=== PATIENT | female | born 1950 | race Caucasian/White ===

== ENCOUNTER 2018-02-15 19:38 | Emergency (ER) | payer OTHER ==
[~2018-02-15 19:38] MED LIST: ATENOLOL50 M1 PO; BUPROPION HCL150 M4 PO; LINZESS145 MC1 PO; PYRIDIUM200 MG PO; RISPERIDONE2 M1 PO; SERTRALINE HCL100 MG PO; TRAZODONE HCL50 M1 PO; TRILIPIX135 M1 PO
--- NOTE | 2018-02-15 20:29 | RADIOLOGY REPORT ---
EXAMINATION: XR SHOULDER, RIGHT CLINICAL INFORMATION: Fall with shoulder ecchymosis COMPARISON: None TECHNIQUE: AP external rotation, Grashey, scapular Y, and axillary views of the right shoulder. FINDINGS: The bones and soft tissues are normal. No fracture. Glenohumeral and acromioclavicular alignment is anatomic with normal joint space. No abnormal soft tissue calcifications. IMPRESSION: Normal right shoulder.
[2018-02-15 20:45] LABS: ABSOLUTE BASOPHIL COUNT 0 /CUMM (0.0-0.2); ABSOLUTE EOSINOPHIL COUNT 0.1 /CUMM (0.0-0.7); ABSOLUTE GRANULOCYTE CT 6.2 /CUMM (1.4-6.5); ABSOLUTE MONOCYTE COUNT 0.8 /CUMM (0.10-0.60); BASOPHIL % 0.2 % (0.0-2.0); EOSINOPHIL % 1.2 % (0-5); GRANULOCYTE % 60.7 % (42.2-75.2); HEMATOCRIT 38.7 % (37-47); MEAN CORPUSCULAR HGB 30.7 PG (27.0-31.0); MEAN CORPUSCULAR HGB CONC 33.8 G/DL (33.0-37.0); MEAN CORPUSCULAR VOLUME 90.8 FL (81.0-99.0); MEAN PLATELET VOLUME 7.6 FL (7.4-10.4); PLATELET COUNT 267 /CUMM (130-400); RBC DISTRIBUTION WIDTH 13.8 % (11.5-14.5); RED BLOOD CELL CT 4.26 /CUMM (4.20-5.40); WHITE BLOOD CELL COUNT 10.1 /CUMM (4.8-10.8)
--- NOTE | 2018-02-15 20:53 | CT SCAN REPORT ---
EXAMINATION: CT BRAIN, CT CERVICAL SPINE AND CT MAXILLOFACIAL BONES. CLINICAL INFORMATION: Status post fall with right facial ecchymosis. COMPARISON: CT brain 01/30/2016. TECHNIQUE: 5 mm thin axial and 2.5 mm thin coronal images of brain were obtained. Axial 2.5 mm thin and reformatted 2 mm thin sagittal and coronal images of cervical spine were obtained. Subsequently 2.5 mm thin and reformatted 1.2 mm thin sagittal and coronal images of facial bones were obtained. DLP 1674. FINDINGS: BRAIN: There is no acute intra-axial, extra-axial bleed, masses, collection or midline shift. No acute infarction in evolution seen. There is moderate prominence of bilateral frontal cortical sulci and mild prominence of lateral ventricles suggestive of cysts cerebral volume loss. The allen to white matter differentiation is maintained. Bone windows reveal no lytic or sclerotic process. Bilateral paranasal sinuses and mastoid air cells are well-aerated. The soft tissues are normal. CERVICAL SPINE: On reconstructed sagittal view there is normal cervical lordosis. Loss of 3-4, C4-C5, C5-C6 and C6 S7 disc heights with mild posterior spondylosis noted. No visible acute fracture or dislocation seen. There is no lytic process. The prevertebral and paravertebral soft tissues are normal. Airway is widely patent. Thyroid, cricoid and laryngeal cartilages are intact. The lung apices are clear. FACIAL BONES: There is mucoperiosteal thickening left maxillary sinuses. Rest of the paranasal sinuses are normal. There is mild deviation of nasal septum to the right with paradoxical right middle turbinate and bilateral mild bladimir bullosa of middle turbinates. Rest of the paranasal sinuses are clear. The bony sinus wrgiht are intact. There is no visible maxillofacial or nasal or mandibular fractures. Bilateral TM joints are symmetrical and unremarkable. IMPRESSION: No acute intracranial process seen. Age-related cerebral volume loss. There is no visible acute fracture or dislocation cervical spine. There are degenerative disc changes and 6 posterior cervical spondylosis C3-C4 through C6-C7 disc levels. No visible acute fracture, dislocation or lytic process seen. There is chronic left maxillary sinus inflammatory changes. No visible acute maxillofacial, nasal, orbital or mandibular fractures seen.
[2018-02-15 20:55] LABS: PT 12.7 SEC (9.4-12.5); PTT 31 SEC (25-37)
--- NOTE | 2018-02-15 21:45 | ED MVC/FALL/TRAUMA COMPLAINT ---
History of Present Illness General Chief Complaint: Facial or Head Injury Stated Complaint: "WELL I FELL THE OTHER DAY" Source: patient Exam Limitations: no limitations Vital Signs & Intake/Output Vital Signs & Intake/Output Vital Signs Date Time Temp Pulse Resp B/P B/P Pulse O2 O2 Flow FiO2 Mean Ox Delivery Rate 02/16 2156 18.0 88 18 148/78 98 02/15 1944 99.0 64 16 150/84 95 Room Air ED Intake and Output 02/16 0000 02/15 1200 Intake Total 0 Output Total Balance 0 Intake, Oral 0 Patient 170 lb Weight Weight Reported by Patient Measurement Method Allergies Coded Allergies: NO KNOWN ALLERGIES (01/29/11) Reconcile Medications Atenolol 50 MG TABLET 1 TAB PO DAILY HEART (Reported) Bupropion HCl (Bupropion HCl Sr) 150 MG TABLET.ER 1 TAB PO BID MENTAL HEALTH (Reported) Fenofibric Acid (Trilipix) 135 MG CAPSULE.DR 1 CAP PO DAILY CHOLESTEROL ( Reported) Linaclotide (Linzess) 145 MCG CAPSULE 1 CAP PO DAILY GI (Reported) Risperidone 2 MG TABLET 1 TAB PO QPM MENTAL HEALTH (Reported) Sertraline HCl 100 MG TABLET 2 TAB PO DAILY MENTAL HEALTH (Reported) Trazodone HCl 50 MG TABLET 1 TAB PO QPM SLEEP (Reported) Triage Note: PT TO ED WITH C/O MECHANICAL FALL 2 WEEKS AGO. STATES LEFT ANKLE GAVE OUT AND SHE FELL INTO A METAL TABLE. DENIES LOC. BRUISING NOTED TO RIGHT SIDE OF FACE AND RIGHT UPPER ARM. DENIES BLOOD THINNERS. STATES AREA PAINFUL DESPITE TAKING MOTRIN AT HOME. REPORTS AN INCREASE IN FALLS OVER THE LAST MONTH. DENIES ETOH OR DRUG USE. Triage Nurses Notes Reviewed? yes Onset: Abrupt Duration: week(s): Timing: recent history Severity: moderate Injuries/Fall Location: face, upper extremity Method of Injury: fall Loss of Consciousness: no loss of consciousness HPI: 67-year-old female presents to emergency department complaining of bruising on face from a fall 2 weeks ago. Patient reports persistent pain to right face and right shoulder. Patient states that she has been falling a lot recently however she does not know why. She reports mechanical falls where she tripped on some things in her house. Patient does report that she had cataracts and her vision may be an issue for her. Patient reports falling 5 times within the past 2 months. She is not using cane or a walker. She denies confusion, abdominal pain, vomiting, paresthesias. (Trice Landers) Past History Travel History Traveled to [place] past 21 day No Medical History Any Pertinent Medical History? see below for history Neurological: NONE EENT: NONE Cardiovascular: hypertension, HYPERLIPIDEMIA Respiratory: asthma Gastrointestinal: NONE Hepatic: NONE Renal: CRI KIDNEY STONES Musculoskeletal: NONE Psychiatric: depression Endocrine: NONE Blood Disorders: NONE Cancer(s): NONE EMERGENCY MANAGER/Reproductive: NONE Surgical History Surgical History: D+C Psychosocial History What is your primary language [place] Tobacco Use: Never used ETOH Use: denies use Illicit Drug Use: denies illicit drug use Family History Hx Contributory? No (Trice Landers) Review of Systems Review of Systems Constitutional: Reports: no symptoms. Eyes: Reports: no symptoms. Ears, Nose, Throat, Mouth: Reports: no symptoms. Respiratory: Reports: no symptoms. Cardiovascular: Reports: no symptoms. Gastrointestinal/Abdominal: Reports: no symptoms. Genitourinary: Reports: no symptoms. Musculoskeletal: Reports: see HPI. Skin: Reports: see HPI. Neurological/Psychological: Reports: no symptoms. All Other Systems: Reviewed and Negative (Trice Landers) Physical Exam Physical Exam General Appearance: well developed/nourished, no apparent distress, alert, awake Head: ecchymosis to right cheek, mild swelling of right face Eyes: Bilateral: normal appearance, PERRL, EOMI. Ears, Nose, Throat, Mouth: hearing grossly normal, moist mucous membrane, Tympanic normal Neck: normal inspection, supple, full range of motion, no midline tenderness Respiratory: no respiratory distress Peripheral Pulses: 2+ radial (R), 2+ radial (L) Back: normal inspection, normal range of motion Extremities: ecchymosis and tenderness to right shoulder, ROM intact Neurologic/Psych: no motor/sensory deficits, awake, alert, oriented x 3, harp regulator II- XII nml as tested Skin: ecchymosis Core Measures ACS in differential dx? No CVA/TIA Diagnosis No Sepsis Present: No Sepsis Focused Exam Completed? No (Trice Landers) Progress Differential Diagnosis: C/T/L spine injury, ext injury, ICH, electrolyte abnormality Plan of Care: Orders Procedure Date/time Status PARTIAL THROMBOPLASTIN TIME 02/15 1951 Complete PROTHROMBIN TIME 02/15 1951 Complete MAGNESIUM 02/15 1951 Complete COMPREHENSIVE METABOLIC PANEL 02/15 1951 Complete CBC WITHOUT DIFFERENTIAL 02/15 1951 Complete Laboratory Tests 02/15/182036: Anion Gap 10, Estimated GFR > 60, BUN/Creatinine Ratio 14.4, Glucose 90, Calcium 10.2, Magnesium 1.7, Total Bilirubin 0.5, AST 40 H, ALT 34, Alkaline Phosphatase 81, Total Protein 7.1, Albumin 4.4, Globulin 2.7, Albumin/Globulin Ratio 1.6, PT 12.7 H, INR 1.16, APTT 31, CBC w Diff NO MAN DIFF REQ, RBC 4.26, MCV 90.8, MCH 30.7, MCHC 33.8, RDW 13.8, MPV 7.6, Gran % 60.7, Lymphocytes % 29.9, Monocytes % 8.0, Eosinophils % 1.2, Basophils % 0.2, Absolute Granulocytes 6.2, Absolute Lymphocytes 3.0, Absolute Monocytes 0.8 H, Absolute Eosinophils 0.1, Absolute Basophils 0 Patient's imaging studies are within normal limits here in the emergency department. She is neurologically intact, answers questions readily. History of many mechanical falls labs are obtained. Patient has mild hyponatremia however otherwise labs are stable. She was encouraged to follow up with her primary care doctor for further workup. She was also encouraged to purchase walker or cane to help with her ambulation. Patient is ready to go home at this time. She agrees with the plan of care. Diagnostic Imaging: Viewed by Me: Radiology Read, CT Scan. Discussed w/RAD: Radiology Read, CT Scan. Radiology Impression: PATIENT: LAKESHA PRAKASH PRESENT AGE: 67 PATIENT ACCOUNT NO: [id number] : 52 LOCATION: [facility] [place] ORDERING PHYSICIAN: Trice DO SERVICE DATE: 02/15/18 EXAM TYPE: CAT - CT CERV SPINE WO IV CONTRAST; CT HEAD WO IV CONTRAST; CT MAXILLOFACIAL W/O CON EXAMINATION: CT BRAIN, CT CERVICAL SPINE AND CT MAXILLOFACIAL BONES. CLINICAL INFORMATION: Status post fall with right facial ecchymosis. COMPARISON: CT brain 01/30/2016. TECHNIQUE: 5 mm thin axial and 2.5 mm thin coronal images of brain were obtained. Axial 2.5 mm thin and reformatted 2 mm thin sagittal and coronal images of cervical spine were obtained. Subsequently 2.5 mm thin and reformatted 1.2 mm thin sagittal and coronal images of facial bones were obtained. DLP 1674. FINDINGS: BRAIN: There is no acute intra-axial, extra-axial bleed, masses, collection or midline shift. No acute infarction in evolution seen. There is moderate prominence of bilateral frontal cortical sulci and mild prominence of lateral ventricles suggestive of cysts cerebral volume loss. The allen to white matter differentiation is maintained. Bone windows reveal no lytic or sclerotic process. Bilateral paranasal sinuses and mastoid air cells are well-aerated. The soft tissues are normal. CERVICAL SPINE: On reconstructed sagittal view there is normal cervical lordosis. Loss of 3-4, C4-C5, C5-C6 and C6 S7 disc heights with mild posterior spondylosis noted. No visible acute fracture or dislocation seen. There is no lytic process. The prevertebral and paravertebral soft tissues are normal. Airway is widely patent. Thyroid, cricoid and laryngeal cartilages are intact. The lung apices are clear. FACIAL BONES: There is mucoperiosteal thickening left maxillary sinuses. Rest of the paranasal sinuses are normal. There is mild deviation of nasal septum to the right with paradoxical right middle turbinate and bilateral mild bladimir bullosa of middle turbinates. Rest of the paranasal sinuses are clear. The bony sinus wright are intact. There is no visible maxillofacial or nasal or mandibular fractures. Bilateral TM joints are symmetrical and unremarkable. IMPRESSION: No acute intracranial process seen. Age-related cerebral volume loss. There is no visible acute fracture or dislocation cervical spine. There are degenerative disc changes and 6 posterior cervical spondylosis C3-C4 through C6-C7 disc levels. No visible acute fracture, dislocation or lytic process seen. There is chronic left maxillary sinus inflammatory changes. No visible acute maxillofacial, nasal, orbital or mandibular fractures seen. DICTATED BY: Misti FONG,Josias DATE/TIME DICTATED:02/15 SENIOR SALES COMPENSATION ANALYST:MAXIMILIANO DATE/TIME TRANSCRIBED:02/15/182030 CONFIDENTIAL, DO NOT COPY WITHOUT APPROPRIATE AUTHORIZATION. <Electronically signed in Other Vendor System> SIGNED BY: Misti FONG,Josias 02/15/182052, PATIENT: LAKESHA PRAKASH PRESENT AGE: 67 PATIENT ACCOUNT NO: [id number] : 52 LOCATION: [facility] [place] ORDERING PHYSICIAN: Trice DO SERVICE DATE: 02/15/18 EXAM TYPE: CAT - CT CERV SPINE WO IV CONTRAST; CT HEAD WO IV CONTRAST; CT MAXILLOFACIAL W/O CON EXAMINATION: CT BRAIN, CT CERVICAL SPINE AND CT MAXILLOFACIAL BONES. CLINICAL INFORMATION: Status post fall with right facial ecchymosis. COMPARISON: CT brain 01/30/2016. TECHNIQUE: 5 mm thin axial and 2.5 mm thin coronal images of brain were obtained. Axial 2.5 mm thin and reformatted 2 mm thin sagittal and coronal images of cervical spine were obtained. Subsequently 2.5 mm thin and reformatted 1.2 mm thin sagittal and coronal images of facial bones were obtained. DLP 1674. FINDINGS: BRAIN: There is no acute intra-axial, extra-axial bleed, masses, collection or midline shift. No acute infarction in evolution seen. There is moderate prominence of bilateral frontal cortical sulci and mild prominence of lateral ventricles suggestive of cysts cerebral volume loss. The allen to white matter differentiation is maintained. Bone windows reveal no lytic or sclerotic process. Bilateral paranasal sinuses and mastoid air cells are well-aerated. The soft tissues are normal. CERVICAL SPINE: On reconstructed sagittal view there is normal cervical lordosis. Loss of 3-4, C4-C5, C5-C6 and C6 S7 disc heights with mild posterior spondylosis noted. No visible acute fracture or dislocation seen. There is no lytic process. The prevertebral and paravertebral soft tissues are normal. Airway is widely patent. Thyroid, cricoid and laryngeal cartilages are intact. The lung apices are clear. FACIAL BONES: There is mucoperiosteal thickening left maxillary sinuses. Rest of the paranasal sinuses are normal. There is mild deviation of nasal septum to the right with paradoxical right middle turbinate and bilateral mild bladimir bullosa of middle turbinates. Rest of the paranasal sinuses are clear. The bony sinus wright are intact. There is no visible maxillofacial or nasal or mandibular fractures. Bilateral TM joints are symmetrical and unremarkable. IMPRESSION: No acute intracranial process seen. Age-related cerebral volume loss. There is no visible acute fracture or dislocation cervical spine. There are degenerative disc changes and 6 posterior cervical spondylosis C3-C4 through C6-C7 disc levels. No visible acute fracture, dislocation or lytic process seen. There is chronic left maxillary sinus inflammatory changes. No visible acute maxillofacial, nasal, orbital or mandibular fractures seen. DICTATED BY: Josias Chappell MD DATE/TIME DICTATED:02/15 SENIOR SALES COMPENSATION ANALYST:MAXIMILIANO DATE/TIME TRANSCRIBED:02/15/182030 CONFIDENTIAL, DO NOT COPY WITHOUT APPROPRIATE AUTHORIZATION. <Electronically signed in Other Vendor System> SIGNED BY: Josias Chappell MD 02/15/182052 (Trice Landers) Departure Departure Disposition: HOME OR SELF CARE Condition: Stable Clinical Impression Primary Impression: Fall Qualifiers: Encounter type: initial encounter Qualified Code: W19.XXXA - Unspecified fall, initial encounter Secondary Impressions: Facial bruising Qualifiers: Encounter type: initial encounter Qualified Code: S00.83XA - Contusion of other part of head, initial encounter Referrals: Destini Elkins APRN (PCP/Family) Additional Instructions: Follow-up with your primary care physician. Return if you have worsening symptoms or concerns. Please note that there might be incidental findings in your evaluation that are unrelated to the current emergency department visit. Please notify your primary care doctor about this emergency department visit in order to obtain and review all of the testing performed so that these incidental findings can be monitored as needed. If you had an x-ray performed, please understand that some fractures may not be seen on the initial set of x-rays. If your symptoms persist you might need a repeat set of x-rays to check for such a fracture. If you had a laceration evaluated, please understand that foreign bodies such as glass or wood may not be visible to the naked eye or on plain x-rays. If the wound becomes red, swollen, increasingly more painful or if there is any drainage from the wound, please have it reevaluated by a physician for the possibility of a retained foreign body. If you're unable to follow up as outlined in the discharge instructions please return to the emergency department. Thank you for choosing the [facility] Emergency Department for your care. It was a pleasure to serve you today. Departure Forms: Customer Survey General Discharge Information (Trice Landers) PA/CRACKING MACHINE OPERATOR Co-Sign Statement Statement: ED Attending supervision documentation- x I saw and evaluated the patient. I have also reviewed all the pertinent lab results and diagnostic results. I agree with the findings and the plan of care as documented in the PA's/CRACKING MACHINE OPERATOR's documentation. [] I have reviewed the ED Record and agree with the PA's/CRACKING MACHINE OPERATOR's documentation. [] Additions or exceptions (if any) to the PAs/CRACKING MACHINE OPERATOR's note and plan are summarized below: [] (Sundeep FONG,Ricardo)
[2018-02-15 21:56] VITALS: BP 148/78
== END 2018-02-15 22:42 ==
LOC: ERH 19:38
PROVIDERS: Physician Assistant
DX: S00.83XA Contusion of other part of head, initial encounter (principal); W19.XXXA Unspecified fall, initial encounter; Y92.9 Unspecified place or not applicable; Y93.9 Activity, unspecified; I10 Essential (primary) hypertension; E78.5 Hyperlipidemia, unspecified; J45.909 Unspecified asthma, uncomplicated
CPT/HCPCS: 73030-RT